=== PATIENT | male | born 1985 | race Caucasian/White ===

== ENCOUNTER 2021-04-09 19:19 | Inpatient (IN) | payer MEDICAID ==
[~2021-04-09] VITALS: Ht 170.2 cm; Wt 71.8 kg
[2021-04-09] MEDS ORDERED: ONDANSETRON HCL 4MG/2ML INJ IV STA ×2 (19:44→21:32)
[2021-04-09] MEDS ORDERED: SODIUM CHLORIDE 0.9% 1,000 ML IV ONE ×2 (19:45→20:45)
[2021-04-09 20:08] LABS: BASOPHILS % 0.5 % (0.0-2.0); HEMATOCRIT. 37.9 % (42.0-52.0); HEMOGLOBIN. 12.6 g/dL (14.0-18.0); LYMPHOCYTES % 21.3 % (20.0-50.0); MEAN CORPUSCULAR HEMOGLOBIN 29.1 pg (28.0-32.0); MEAN CORPUSCULAR VOLUME 87.6 fL (80.0-94.0); MONOCYTES % 11.3 % (2.0-8.0); NEUTROPHILS % 65.9 % (40.0-76.0); PLATELET 230 x1000/uL (130-400); RED BLOOD CELL COUNT 4.33 mill/uL (4.7-6.1); RED CELL DISTRIBUTION WIDTH 13.6 % (11.6-14.6)
[2021-04-09 20:11] LABS: CHLORIDE 96 mEq/L (98-107)
[2021-04-09 20:15] LABS: ETHANOL BLOOD < 10 mg/dL
[2021-04-09] MEDS ORDERED: PANTOPRAZOLE SODIUM 40 MG/VIAL IV ONE (20:45)
[2021-04-09 21:22] LABS: CLARITY URINE CLEAR (CLEAR); COLOR URINE YELLOW (YELLOW); KETONES URINE TRACE (NEGATIVE); LEUKOCYTE ESTERASE URINE NEGATIVE (NEGATIVE); NITRITE URINE NEGATIVE (NEGATIVE); OCCULT BLOOD URINE NEGATIVE (NEGATIVE); PROTEIN URINE NEGATIVE (NEGATIVE); SPECIFIC GRAVITY URINE 1.042 (1.005-1.030); UROBILINOGEN URINE 0.2 E.U./dL (0.2-1.0)
[2021-04-09 21:31] LABS: METHADONE URINE SCREEN NEGATIVE (NEGATIVE); OPIATES URINE SCREEN NEGATIVE (NEGATIVE)
[2021-04-09 21:32] LABS: *AMPHETAMINES SCREEN URINE NEGATIVE (NEGATIVE); *BARBITURATES SCREEN URINE NEGATIVE (NEGATIVE); *BENZODIAZEPINES SCREEN URINE NEGATIVE (NEGATIVE); *COCAINE SCREEN URINE NEGATIVE (NEGATIVE); CANNABINOID URINE SCREEN NEGATIVE (NEGATIVE); PHENCYCLIDINE URINE SCREEN NEGATIVE (NEGATIVE)
[2021-04-09] MEDS ORDERED: MORPHINE SULFATE 4 MG/ML CPJ (NOT FOR IM USE) IV STA (21:32)
[2021-04-09] MEDS ORDERED: INSULIN REGULAR (HUMULIN R) 300UNITS/3ML VIAL SUBCUT ONE (21:45)
[2021-04-10] MEDS ORDERED: INSULIN REGULAR (HUMULIN R) 300UNITS/3ML VIAL SUBCUT SCH (02:30)
[2021-04-10] MEDS: ONDANSETRON HCL 4MG/2ML INJ IV PRN ×2 (02:40→13:16)
[2021-04-10] MEDS ORDERED: DEXTROSE 50% WATER 50ML SYRINGE IV PRN (08:30)
[2021-04-10] MEDS: BLOOD SUGAR DIAGNOSTIC STRIP TEST SCH ×3 (11:51→20:06)
[2021-04-10] MEDS: INSULIN LISPRO 100 UNITS/ML SUBCUT SCH ×3 (11:58→20:38)
[2021-04-10] MEDS: ACETAMINOPHEN 325MG TABLET PO PRN (12:01)
[2021-04-10 12:28] LABS: HEMATOCRIT 37.5 % (42.0-52.0); HEMOGLOBIN 12.4 g/dL (14.0-18.0)
[2021-04-10] MEDS: PANTOPRAZOLE SODIUM 40 MG/VIAL IV SCH (13:00)
[2021-04-10 13:31] VITALS: BP 137/90
[2021-04-10 16:00] VITALS: BP 129/78
[2021-04-10] MEDS: METOCLOPRAMIDE HCL 10MG/2ML VIAL IV SCH ×2 (17:50→23:18)
[2021-04-10 20:00] VITALS: BP 115/80
[2021-04-10] MEDS ORDERED: INSULIN GLARGINE UD 100 UNITS/ML SYR SUBCUT SCH (22:00)
[2021-04-11] VITALS: BP 120/86
[2021-04-11 04:00] VITALS: BP 104/70
[2021-04-11] MEDS: METOCLOPRAMIDE HCL 10MG/2ML VIAL IV SCH ×2 (05:12→12:18)
[2021-04-11] MEDS: BLOOD SUGAR DIAGNOSTIC STRIP TEST SCH ×2 (05:47→11:52)
[2021-04-11] MEDS: INSULIN LISPRO 100 UNITS/ML SUBCUT SCH ×2 (05:54→12:18)
[2021-04-11 08:00] VITALS: BP 93/66
[2021-04-11] MEDS: PANTOPRAZOLE SODIUM 40 MG/VIAL IV SCH (09:20)
[2021-04-11] MEDS ORDERED: INSULIN GLARGINE UD 100 UNITS/ML SYR SUBCUT SCH (10:00)
[2021-04-11] MEDS ORDERED: METO-293 MT (11:23)
[2021-04-11] MEDS ORDERED: LANTUSUD SUBCUT (11:23)
[2021-04-11 12:00] VITALS: BP 128/86
[2021-04-11 12:10] LABS: HEMATOCRIT 38.3 % (42.0-52.0); HEMOGLOBIN 12.6 g/dL (14.0-18.0)
[2021-04-11 13:31] VITALS: BP 128/86
[2021-04-11] MEDS: ACETAMINOPHEN 325MG TABLET PO PRN (14:59)
== END 2021-04-11 16:25 | disposition home or self-care (01) | DRG 48 ==
LOC: ER 19:19 → MICUSO 21:36 → 7EST 04-10 13:44
PROVIDERS: ADMIT Internal Medicine; ATTEND Internal Medicine
DX: E11.43 Type 2 diabetes mellitus with diabetic autonomic (poly)neuropathy (principal); E44.1 Mild protein-calorie malnutrition; E87.8 Other disorders of electrolyte and fluid balance, not elsewhere classified; E87.1 Hypo-osmolality and hyponatremia; K76.0 Fatty (change of) liver, not elsewhere classified; E11.65 Type 2 diabetes mellitus with hyperglycemia; D64.9 Anemia, unspecified; I10 Essential (primary) hypertension; K31.84 Gastroparesis; Z87.891 Personal history of nicotine dependence; Z91.14 Patient's other noncompliance with medication regimen; Z68.24 Body mass index [BMI] 24.0-24.9, adult
CPT/HCPCS: 36415; 74176; 76700; 80053; 80305; 80320; 81003; 82962; 83036; 85014; 85018; 85025; 86850; 86900; 93005; 99291; C9113; J1815; J2270; J2405; J2765; J7030; J7040; G0480

== ENCOUNTER 2022-07-22 08:20 | Inpatient (IN) | payer MEDICAID ==
[~2022-07-22] VITALS: Ht 165.1 cm; Wt 78.9 kg
[~2022-07-22 08:20] MED LIST: LANTUSUD SUBCUT; METO-293 MT
[2022-07-22] MEDS ORDERED: MORPHINE SULFATE 4 MG/ML CPJ (NOT FOR IM USE) IV STA (09:03)
[2022-07-22] MEDS ORDERED: ONDANSETRON HCL 4MG/2ML INJ IV STA (09:03)
[2022-07-22] MEDS ORDERED: PIPERACILLIN/TAZ 3.375G PREMIX 50 ML IV ONE (09:15)
[2022-07-22] MEDS ORDERED: VANCOMYCIN 1G PREMIX 200 ML IV ONE (09:15)
[2022-07-22] MEDS ORDERED: SODIUM CHLORIDE 0.9% 1,000 ML IV ONE ×2 (09:15→11:15)
[2022-07-22 10:13] LABS: HEMATOCRIT. 34.8 % (42.0-52.0); HEMOGLOBIN. 11.4 g/dL (14.0-18.0); MEAN CORPUSCULAR HEMOGLOBIN 29.3 pg (28.0-32.0); MEAN CORPUSCULAR VOLUME 89.5 fL (80.0-94.0); MEAN PLATELET VOLUME 9.1 fl (7.4-10.4); PLATELET 341 x1000/uL (130-400); RED BLOOD CELL COUNT 3.88 mill/uL (4.7-6.1); RED CELL DISTRIBUTION WIDTH 12.8 % (11.6-14.6)
[2022-07-22 10:25] LABS: CHLORIDE 89 mEq/L (98-107); PROTHROMBIN TIME 10.9 sec (9.6-11.0)
[2022-07-22 10:37] LABS: PLATELET ESTIMATE NORMAL
[2022-07-22] MEDS ORDERED: INSULIN REGULAR (HUMULIN R) 300UNITS/3ML VIAL SUBCUT ONE (11:15)
[2022-07-22] MEDS ORDERED: HYDROCODONE/ACETAMINOPHEN 7.5/325MG TABLET PO PRN (13:45)
[2022-07-22] MEDS ORDERED: NALOXONE HCL 0.4MG/ML VIAL IV PRN (13:45)
[2022-07-22 15:21] VITALS: BP 131/91
[2022-07-22] MEDS ORDERED: DOCUSATE SODIUM 100MG CAPSULE PO PRN (15:45)
[2022-07-22] MEDS ORDERED: PIPERACILLIN/TAZOBACTAM 3.375 G in DEXTROSE 5% WATER 50 ML IV SCH (15:45)
[2022-07-22] MEDS ORDERED: MAGNESIUM/ALUMINUM HYDROXIDE/SIMETHICONE 30ML UDC PO PRN (15:45)
[2022-07-22] MEDS ORDERED: CLONIDINE 0.1MG TABLET PO PRN (15:45)
[2022-07-22] MEDS ORDERED: ONDANSETRON HCL 4MG/2ML INJ IV PRN (15:45)
[2022-07-22] MEDS ORDERED: GUAIFENESIN 200MG/10ML SUGAR FREE UDC PO PRN (15:45)
[2022-07-22] MEDS: ACETAMINOPHEN 325MG TABLET PO PRN ×2 (15:59→21:31)
[2022-07-22 16:00] VITALS: BP 125/88
[2022-07-22] MEDS ORDERED: DEXTROSE 50% WATER 50ML SYRINGE IV PRN (16:00)
[2022-07-22] MEDS ORDERED: ENOXAPARIN 40MG/0.4ML SYR SUBCUT SCH (16:00)
[2022-07-22] MEDS: SODIUM CHLORIDE 0.9% 1,000 ML IV SCH (16:27)
[2022-07-22 16:41] LABS: HEPATITIS B SURFACE ANTIGEN NEGATIVE
[2022-07-22] MEDS: BLOOD SUGAR DIAGNOSTIC STRIP TEST SCH ×3 (16:44→20:57)
[2022-07-22] MEDS: TRAMADOL 50MG TABLET PO PRN (16:50)
[2022-07-22] MEDS ORDERED: PIPERACILLIN/TAZOBACTAM 3.375G in DEXT 5% WATER 50ML IV SCH (17:00)
[2022-07-22] MEDS: INSULIN LISPRO 100 UNITS/ML SUBCUT SCH ×2 (17:24→21:19)
[2022-07-22] MEDS ORDERED: INSU100I28 SQ (18:08)
[2022-07-22] MEDS ORDERED: METF-416 MT (18:08)
[2022-07-22] MEDS: PIPERACILLIN/TAZOBACTAM 3.375G in DEXT 5% WATER 50ML IV SCH (19:50)
[2022-07-22 20:00] VITALS: BP 119/83
[2022-07-22] MEDS: INSULIN GLARGINE 100 UNITS/ML SUBCUT SCH (21:20)
[2022-07-23] VITALS: BP 114/71
[2022-07-23] MEDS: ACETAMINOPHEN 325MG TABLET PO PRN ×2 (01:42→23:36)
[2022-07-23] MEDS: BLOOD SUGAR DIAGNOSTIC STRIP TEST SCH ×4 (04:24→21:00)
[2022-07-23 04:50] VITALS: BP 105/74
[2022-07-23 05:00] VITALS: BP 119/67
[2022-07-23] MEDS: HYDROCODONE/ACETAMINOPHEN 7.5/325MG TABLET PO PRN ×2 (05:09→09:11)
[2022-07-23] MEDS: SODIUM CHLORIDE 0.9% 1,000 ML IV SCH ×2 (05:17→11:45)
[2022-07-23] MEDS: PIPERACILLIN/TAZOBACTAM 3.375G in DEXT 5% WATER 50ML IV SCH (05:17)
[2022-07-23 06:13] LABS: BASOPHILS % 0.1 % (0.0-2.0); EOSINOPHILS % 0.4 % (0.0-5.0); HEMATOCRIT. 29.1 % (42.0-52.0); HEMOGLOBIN. 9.8 g/dL (14.0-18.0); LYMPHOCYTES % 7.7 % (20.0-50.0); MEAN CORPUSCULAR HEMOGLOBIN 29.4 pg (28.0-32.0); MEAN CORPUSCULAR VOLUME 87.7 fL (80.0-94.0); MEAN PLATELET VOLUME 8.8 fl (7.4-10.4); MONOCYTES % 12.3 % (2.0-8.0); NEUTROPHILS % 79.5 % (40.0-76.0); PLATELET 318 x1000/uL (130-400); RED BLOOD CELL COUNT 3.32 mill/uL (4.7-6.1)
[2022-07-23] MEDS: INSULIN LISPRO 100 UNITS/ML SUBCUT SCH ×4 (06:32→22:27)
[2022-07-23 07:52] LABS: CHLORIDE 95 mEq/L (98-107)
[2022-07-23 08:03] LABS: HDL CHOLESTEROL 35 mg/dL (40-59); LDL CHOLESTEROL 55 mg/dL (5-100)
[2022-07-23] MEDS ORDERED: SODIUM BICARBONATE 4% (2.4MEQ) 5ML VIAL IV ONE (11:03)
[2022-07-23] MEDS ORDERED: LIDOCAINE HCL 1% 30ML VIAL (10MG/ML) ONE (11:03)
[2022-07-23] MEDS ORDERED: VANCOMYCIN 750MG PREMIX 150 ML IV SCH (12:00)
[2022-07-23] MEDS: HYDROMORPHONE HCL/PF 2MG/ML CPJ IV PRN ×2 (12:42→17:47)
[2022-07-23] MEDS: CEFTAZIDIME PENTAHYDRATE 2 G in DEXT 5% WATER 100 ML IV SCH ×2 (14:26→22:05)
[2022-07-23 16:00] VITALS: BP 136/84
[2022-07-23] MEDS: VANCOMYCIN 750MG PREMIX 150 ML IV SCH (17:46)
[2022-07-23 20:26] VITALS: BP 106/65
[2022-07-23] MEDS: INSULIN GLARGINE 100 UNITS/ML SUBCUT SCH (22:27)
[2022-07-24] VITALS: BP 120/78
[2022-07-24] MEDS: VANCOMYCIN 750MG PREMIX 150 ML IV SCH ×2 (01:01→09:04)
[2022-07-24] MEDS: SODIUM CHLORIDE 0.9% 1,000 ML IV SCH ×2 (01:14→09:06)
[2022-07-24 04:00] VITALS: BP 108/75
[2022-07-24] MEDS: ACETAMINOPHEN 325MG TABLET PO PRN (05:02)
[2022-07-24 05:54] LABS: CHLORIDE 94 mEq/L (98-107)
[2022-07-24] MEDS: BLOOD SUGAR DIAGNOSTIC STRIP TEST SCH ×2 (07:31→12:09)
[2022-07-24 08:00] VITALS: BP 113/68
[2022-07-24] MEDS: INSULIN LISPRO 100 UNITS/ML SUBCUT SCH ×2 (09:05→12:15)
[2022-07-24] MEDS: TRAMADOL 50MG TABLET PO PRN (09:06)
[2022-07-24] MEDS: HYDROCODONE/ACETAMINOPHEN 7.5/325MG TABLET PO PRN (12:22)
[2022-07-24 12:38] VITALS: BP 127/87
[2022-07-24] MEDS ORDERED: INDOMETHACIN 25MG CAPSULE PO SCH (14:00)
[2022-07-24] MEDS ORDERED: TETANUS, DIPHTHERIA, PERTUSSIS VAC/PF 0.5ML (>10YR OLD) IM ONE (21:00)
== END 2022-07-24 14:45 | disposition home or self-care (01) | DRG 720 ==
LOC: ER 08:20 → MICUSO 11:33 → EDBEDREQSVC 11:37 → EDBEDREQ 11:37 → 6EST 12:45 → 7WST 16:15
PROVIDERS: ADMIT Hospitalist; ATTEND Hospitalist
PROC: 0S9D3ZZ Drainage of Left Knee Joint, Percutaneous Approach (ICD-10-PCS; principal; 2022-07-24)
DX: A41.9 Sepsis, unspecified organism (principal); M00.9 Pyogenic arthritis, unspecified; E11.65 Type 2 diabetes mellitus with hyperglycemia; L03.119 Cellulitis of unspecified part of limb; I10 Essential (primary) hypertension; M10.062 Idiopathic gout, left knee; M11.262 Other chondrocalcinosis, left knee; Z20.822 Contact with and (suspected) exposure to COVID-19; Z90.49 Acquired absence of other specified parts of digestive tract
CPT/HCPCS: 20611; 36415; 73560; 80048; 80053; 80061; 80202; 82962; 83036; 83605; 84145; 84550; 85025; 85651; 86803; 87340; 87426; 89060; 90715; 93005; 99285; J0713; J1170; J1650; J1815; J2270; J2405; J2543; J3370; J3490; J7030; J7060